=== PATIENT | male | born 1975 | race Caucasian/White ===

== ENCOUNTER 2017-12-11 20:31 | Emergency (ER) | payer OTHER ==
[~2017-12-11] VITALS: Ht 170.2 cm; Wt 99.8 kg
[~2017-12-11 20:31] MED LIST: BACTROBAN22 TOP; KEFLEX250 MG PO; PANTOPRAZOLE SO40 M1 PO; WELCHOL3.75 GM/P1 PO
[2017-12-11 20:37] VITALS: Ht 170.2 cm; Wt 99.8 kg
[2017-12-11 21:48] LABS: BASOPHIL % 0.2 % (0-2); PLATELET COUNT 198 x10^3mcL (130-400); RED CELL DISTRIBUTION WIDTH 13.8 % (11.5-14.5)
[2017-12-11 21:55] LABS: CALCIUM 8.4 mg/dL (8.5-10.1); CARBON DIOXIDE 26.9 mmol/L (21-32); CHLORIDE SERUM 105 mmol/L (98-107); CREATININE SERUM 0.9 mg/dL (0.7-1.3); GFR1 > 60 mL/min; GLUCOSE SERUM 125 mg/dL (74-106); POTASSIUM SERUM 3.2 mmol/L (3.5-5.1); SODIUM SERUM 142 mmol/L (136-145)
[2017-12-11 21:59] LABS: ALBUMIN 3.4 g/dL (3.4-5.0); ALKALINE PHOSPHATASE 78 U/L (46-116); ALT/SGPT 45 U/L (16-63); AST/SGOT 23 U/L (15-37); BILIRUBIN TOTAL 2.17 mg/dL (0.20-1.00); TOTAL PROTEIN, SERUM 7.4 g/dL (6.4-8.2)
[2017-12-11 22:20] LABS: UA SPECIFIC GRAVITY >=1.030 (1.005-1.035); microscopic required? YES; urine erythrocyte 3+ (NEGATIVE)
[2017-12-12 00:04] VITALS: BP 115/73
== END 2017-12-12 00:05 | disposition home or self-care (01) ==
LOC: ED 20:31
PROVIDERS: Emergency Medicine
DX: N39.0 Urinary tract infection, site not specified (principal)
CPT/HCPCS: 87804; J0696; J7030; Q0092